=== PATIENT | male | born 1965 | race American Indian/Alaskan Native ===

== ENCOUNTER 2019-01-23 09:23 | Inpatient (IN) | payer OTHER ==
--- NOTE | 2019-01-23 10:33 | C.PDOC ---
History Of Present Illness 53 y/o male presents to the ED for evaluation of right ankle pain/swelling and deformity since this morning. Patient states he was up and wrestling with his son at home when he injured the ankle. Otherwise, he denies obvious deformity, sensory or vascular deficits to Right ankle/foot, or open wounds, or other injury. Appears comfortable, not in any apparent distress. Time Seen by Provider: 01/23/19 09:45 Chief Complaint (Nursing): Lower Extremity Problem/Injury History Per: Patient History/Exam Limitations: no limitations Onset/Duration Of Symptoms: Hrs Current Symptoms Are (Timing): Still Present Severity: Moderate Past Medical History Reviewed: Historical Data, Nursing Documentation, Vital Signs Vital Signs: Last Vital Signs Temp 98.7 F 01/23/19 09:34 Pulse 79 01/23/19 09:34 Resp 18 01/23/19 09:34 BP 162/94 H 01/23/19 09:34 Pulse Ox 98 01/23/19 09:34 - Medical History PMH: HTN Family History: States: Unknown Family Hx - Social History Hx Alcohol Use: No Hx Substance Use: No - Immunization History Hx Tetanus Toxoid Vaccination: No Hx Influenza Vaccination: No Hx Pneumococcal Vaccination: No Review Of Systems Except As Marked, All Systems Reviewed And Found Negative. Constitutional: Negative for: Fever, Chills Cardiovascular: Negative for: Chest Pain Respiratory: Negative for: Shortness of Breath Gastrointestinal: Negative for: Nausea, Vomiting Musculoskeletal: Positive for: Foot Pain (right ankle). Negative for: Back Pain Skin: Negative for: Rash, Lesions Neurological: Negative for: Weakness, Numbness, Incoordination Physical Exam - Physical Exam Appears: Well, Non-toxic, No Acute Distress Skin: Normal Color, Warm, No Rash Head: Normacephalic Eye(s): bilateral: PERRL Neck: Trachea Midline, No Midline Cervical Tenderness, No Paracervical Tenderness, No Step Off Deformity, Supple Chest: Symmetrical, No Deformity Cardiovascular: Rhythm Regular, No Murmur Respiratory: No Accessory Muscle Use Extremity: Tenderness (diffuse tenderness over right ankle), Capillary Refill (less than 2 sec), Swelling (edema over right ankle), Other (Decreased ROM secondary to pain) Pulses: Left Dorsalis Pedis: Normal, Right Dorsalis Pedis: Normal Neurological/Psych: Oriented x3, Normal Sensation, Normal Reflexes ED Course And Treatment - Laboratory Results Result Diagrams: 01/23/19 11:55 01/23/19 11:55 Lab Interpretation: No Acute Changes ECG: Interpreted By Me, Viewed By Me Interpretation Of ECG: SR@76/min, LAD, T wave inversion in II, III, AVF. ECHO results review from 08/2018 O2 Sat by Pulse Oximetry: 98 (on RA) Pulse Ox Interpretation: Normal - Radiology CXR: Interpreted by Me, Viewed By Me, Read By Radiologist CXR Interpretation: Yes: No Acute Disease - Other Rad Right ankle X-Ray: Interpreted by Me, Viewed By Me Interpretation: (+) distal fibula fx, spiral, displaced Progress Note: Patient given 50 mg PO Tramadol. X-rays taken of right ankle, foot, and tib fib. Podiatry consult was called, splint applied. After podiatry resident evaluated pt, discussed with Podiatry on-call , admission to [facility] requested with [facility] by PMD. 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 - Scribe Statement The provider has reviewed the documentation as recorded by the Radhaibtyrel Weston All medical record entries made by the Radhaibtyrel were at my direction and personally dictated by me. I have reviewed the chart and agree that the record accurately reflects my personal performance of the history, physical exam, medical decision making, and the department course for this patient. I have also personally directed, reviewed, and agree with the discharge instructions and disposition.
[2019-01-23 11:59] LABS: BASO # 0.1 K/uL (0.0-0.2); BASO % 0.7 % (0.0-2.0); HEMOGLOBIN 15.9 g/dL (12.0-18.0); LYMPH % 12.6 % (20.0-40.0); MEAN CELL VOLUME 87.2 fL (80.0-94.0); MEAN CORPUSCULAR HEMOGLOBIN 28.5 pg (27.0-31.0); MEAN CORPUSCULAR HGB CONC 32.6 g/dL (33.0-37.0); MEAN PLATELET VOLUME 7.9 fL (7.2-11.7); MONO # 0.3 K/uL (0.0-0.8); MONO % 3.7 % (0.0-10.0); NEUT # 6.6 K/uL (1.8-7.0); RBC 5.58 Mil/uL (4.40-5.90); RED CELL DISTRIBUTION WIDTH 14.2 % (11.5-14.5); WHITE BLOOD COUNT 7.9 K/uL (4.8-10.8)
[2019-01-23] MEDS ORDERED: Sodium Chloride 0.9% 1,000 ML IV SCH (12:00)
[2019-01-23 12:07] LABS: PROTHROMBIN TIME 11.4 SECONDS (9.7-12.2)
[2019-01-23 12:12] LABS: BLOOD UREA NITROGEN 16 mg/dL (9-20); CALCIUM 9.6 mg/dl (8.6-10.4); GFR NON-AFRICAN AMERICAN 53
--- NOTE | 2019-01-23 12:56 | RAD ---
Date of service: 01/23/2019 PROCEDURE: Right Ankle Radiographs. HISTORY: injury COMPARISON: None available. FINDINGS: BONES: A mildly comminuted spiral type fracture distal fibular metaphysis with ankle mortise extension. No ankle mortise widening appreciated. Fracture ends are 3 mm slightly displaced posteriorly 2 to 3 mm on lateral view. JOINTS: Minimal midfoot osteoarthrosis.. No ankle mortise widening. Talar dome intact SOFT TISSUES: Marked soft tissue swelling lateral perimalleolar. OTHER FINDINGS: Sandeep's tendon insetional enesthesophyte. IMPRESSION: Mildly comminuted minimally displaced spiral type distal fibular metaphyseal fracture with extension to the tibial fibular joint. No ankle mortise widening suggested Marked soft tissue swelling as above.
--- NOTE | 2019-01-23 13:19 | CP.PCM.CON ---
History of Present Illness - History of Present Illness History of Present Illness: Podiatry Consult Note- Dr. Lopez 53 year old male with PMH of HTN seen and evaluated in the ED for right ankle pain. Patient reports that today he was playing with his son when he fell backwards and twisted his right ankle. He reports hearing a pop and felt immediate pain. Reports unable to put any weight on the right ankle and came to the ED for an evaluation. Patient reports he has 3/10 pain currently, describes as an achy pain. Reports some numbness to the ankle. Reports pain medication given in the ED is helping with the pain. Pain is well controlled. Reports that with ankle motion he has 10/10 pain on VAS scale. Reports nothing to eat or drink since morning. Denies nausea, fever, shortness of breath, chest pains or chills. PMH: HTN PSH: denies ALL: NKDA FH: HTN SH: denies smoking, socially drink EtOH or illicit drug use MEDS: Hydralazine, Metoprolol, Amlodipine Primary: Shanita Hernandez Past Patient History - Past Social History Smoking Status: Never Smoked - CARDIAC Hx Hypertension: Yes - PSYCHIATRIC Hx Substance Use: No - SURGICAL HISTORY Hx Surgeries: No - ANESTHESIA Hx Anesthesia: No Meds Allergies/Adverse Reactions: Allergies Allergy/AdvReac Type Severity Reaction Status Date / Time No Known Allergies Allergy Verified 01/23/19 09:32 - Medications Medications: Current Medications Sodium Chloride (Sodium Chloride 0.9%) 1,000 mls @ 150 mls/hr IV .Q6H40M [place] Physical Exam - Constitutional Appears: Well, Non-toxic, No Acute Distress - Extremities Exam Extremities exam: Negative for: calf tenderness Additional comments: RLE VASC: DP and PT 2/4, pulses present, CFT < 3 seconds x 5 digits, temperature gradient warm to cool, nonpitting edema mild-moderate noted to the entire right ankle, no varciosities, no spider veins ORTHO: severe pain with palpation to the lateral malleolus, moderate deltoid ligaments and ankle joint, pain with ankle ROM, patient able to dorsiflexion, plantarflexion, invert and nafisa with some guarding noted, no pallor NEURO: gross and protective sensation intact DERM: no ecchymosis noted, no open lesions, skin texture WNL, no erythema noted - Neurological Exam Neurological exam: Alert, Oriented x3 - Psychiatric Exam Psychiatric exam: Normal Affect, Normal Mood Results - Vital Signs Recent Vital Signs: Last Vital Signs Temp 98.7 F 01/23/19 09:34 Pulse 79 01/23/19 09:34 Resp 18 01/23/19 09:34 BP 162/94 H 01/23/19 09:34 Pulse Ox 98 01/23/19 12:26 - Labs Result Diagrams: 01/23/19 11:55 01/23/19 11:55 Labs: Laboratory Results - last 24 hr 01/23/19 01/23/19 01/23/19 11:55 11:55 11:55 WBC 7.9 RBC 5.58 Hgb 15.9 Hct 48.7 MCV 87.2 MCH 28.5 MCHC 32.6 L RDW 14.2 Plt Count 301 MPV 7.9 Neut % (Auto) 83.0 H Lymph % (Auto) 12.6 L Hickman % (Auto) 3.7 Eos % (Auto) 0.0 Baso % (Auto) 0.7 Neut # (Auto) 6.6 Lymph # (Auto) 1.0 Hickman # (Auto) 0.3 Eos # (Auto) 0.0 Baso # (Auto) 0.1 PT 11.4 INR 1.0 APTT 33 Sodium 140 Potassium 3.8 Chloride 104 Carbon Dioxide 28 Anion Gap 12 BUN 16 Creatinine 1.4 Est GFR ( Amer) > 60 Est GFR (Non-Af Amer) 53 Random Glucose 110 Calcium 9.6 Assessment & Plan - Assessment and Plan (Free Text) Assessment: 53 year old male with PMH of HTN with displaced fibular fracture with possible tear of the deltoid ligament Plan: PAtient seen and examined Discussed plan in detail with attending Dr Lopez X-rays reviewed right ankle- pending final read- displaced right ankle distal fibular fracture, wide medial gutter, ankle joint incongruent (read by me) Reviewed X-rays with patient NPO Diet. Nothing to eat or drink today Mcgowan Compression applied, posterior splint applied. Please ice behind knee and top of right ankle Elevate with 3-4 pillows RLE NWB to right lower extremity Physical therapy consulted- please elevate and treat Patient to go to the OR today at 6:30 pm for open reduction internal fixation of right ankle pending medical clearance Please provide medical clearance- thank you OR notified of add on Patient will be under overnight observation after surgery Discussed with patient in detail risks, benefits, complications and alternatives. Patient understands and is agreeable. Thank you for allowing us to participate in patient's care
[2019-01-23] MEDS ORDERED: Oxycodone/Acetaminophen 5/325 mg Tab PO PRN ×2 (13:21→13:43)
--- NOTE | 2019-01-23 14:08 | RAD ---
Date of service: 01/23/2019 HISTORY: surg/HTN COMPARISON: No prior. FINDINGS: LUNGS: No active pulmonary disease. PLEURA: No significant pleural effusion identified, no pneumothorax apparent. CARDIOVASCULAR: No aortic atherosclerotic calcification present. Normal cardiac size. No pulmonary vascular congestion. OSSEOUS STRUCTURES: No significant abnormalities. VISUALIZED UPPER ABDOMEN: Normal. OTHER FINDINGS: None. IMPRESSION: No active disease.
--- NOTE | 2019-01-23 14:20 | RAD ---
Date of service: 01/23/2019 PROCEDURE: Right Foot Radiographs. HISTORY: injury COMPARISON: Right ankle 01/23/2019 FINDINGS: BONES: The previously referenced spiral comminuted type distal fibular metaphyseal fracture is hree noted this is clearly better appreciated on the prior ankle study. Soft tissue swelling over it is not clearly appreciated. JOINTS: Minimal 1st metatarsal-phalangeal joint arthrosis minimal midfoot arthrosis. SOFT TISSUES: Marked soft tissue swelling especially lateral to the fibula Approximately 2 mm triangular bony like density projects posterior to the tibia and fibula on the lateral view this not appreciated well on the prior study-this may represent a tiny osseous chip fracture in this patient with an acute spiral mildly comminuted distal fibular metaphyseal fracture. OTHER FINDINGS: Leicester's tendon insetional enesthesophyte. IMPRESSION: Re-noted, albeit less conspicuous is a comminuted spiral type fracture distal fibular metaphysis. Apparent 2 mm posterior measuring chip fracture fragment. Associated marked soft tissue swelling. Other findings as above.
--- NOTE | 2019-01-23 14:21 | RAD ---
Date of service: 01/23/2019 PROCEDURE: Radiographs of the right tibia and fibula. HISTORY: injury COMPARISON: None available TECHNIQUE: Frontal and lateral views obtained. FINDINGS: BONES: Spiral a comminuted fracture fibular metaphysis with tibial fibular joint intra-articular extension noted. The fracture ends are approximately 2 mm of the distal fracture fragment posteriorly displaced approximately 2 mm. JOINT SPACES: Unremarkable. OTHER FINDINGS: Soft tissue swelling borders lateral malleolus. IMPRESSION: Comminuted spiral minimally displaced distal fibular metaphyseal fracture with tibial fibular joint intra-articular extension. Findings were referenced on the prior right ankle x-ray study. Marked soft tissue swelling. No more tibial fibular fractures noted.
--- NOTE | 2019-01-23 19:38 | CP.PCM.PN ---
Subjective - Date & Time of Evaluation Date of Evaluation: 01/23/19 Time of Evaluation: 18:15 - Subjective Subjective: Consult dictated #[id number] Objective - Vital Signs/Intake and Output Vital Signs (last 24 hours): Temp Pulse Resp BP Pulse Ox 97.8 F 71 19 176/99 H 98 01/23/19 18:58 01/23/19 18:58 01/23/19 18:58 01/23/19 18:58 01/23/19 18:58 - Medications Medications: Current Medications Acetaminophen (Tylenol 325mg Tab) 650 mg PO Q6 PRN PRN Reason: Pain, Mild (1-3) Enoxaparin Sodium (Lovenox) 40 mg SC DAILY [place] Sodium Chloride (Sodium Chloride 0.9%) 1,000 mls @ 150 mls/hr IV .Q6H40M [place] Last Admin: 01/23/19 12:00 Dose: 150 mls/hr Oxycodone/Acetaminophen (Percocet 5/325 Mg Tab) 1 tab PO Q4H PRN PRN Reason: Pain, moderate (4-7) Stop: 01/26/19 13:22 Oxycodone/Acetaminophen (Percocet 5/325 Mg Tab) 2 tab PO Q4H PRN PRN Reason: Pain, severe (8-10) Stop: 01/26/19 13:44 - Labs Labs: 01/23/19 11:55 01/23/19 11:55 PT 11.4 SECONDS (9.7-12.2) 01/23/19 11:55 INR 1.0 01/23/19 11:55 APTT 33 SECONDS (21-34) 01/23/19 11:55
[2019-01-23] MEDS: Sodium Chloride 0.45% 1,000 ML IV SCH (23:55)
[2019-01-23] MEDS: Metoprolol Succinate 50 mg XL Tab PO SCH (23:55)
--- NOTE | 2019-01-24 06:55 | CON ---
DATE: 01/23/2019 REASON FOR CONSULT: Medical clearance. REQUESTING PHYSICIAN: Kerri Lopez DPM HISTORY OF PRESENT ILLNESS: The patient is a 53-year-old male with past medical history of hypertension who has been following up with Dr. Reese Hernandez, his primary care physician, came in to the emergency room after he had sustained a fall and hurt his right ankle. As per the patient, he stumbled back while he was with his son and lost his balance. He hurt his right ankle with pain for which he was evaluated in the emergency room. He was found to be having right ankle fracture and the patient is being admitted for possible surgical correction and medical consult requested for medical clearance. When I examined the patient, he denies any headache, dizziness. Denies any chest pain, shortness of breath or wheezing. Denies any nausea, vomiting, abdominal pain, diarrhea or constipation. Denies any urinary complaints, complaining of right leg pain when he moves but denies any other neurologic symptoms. All other systems reviewed and were found to be negative. PAST MEDICAL HISTORY: As described, hypertension. PAST SURGICAL HISTORY: Denies any past surgical history. FAMILY HISTORY: Diabetes and hypertension in mother, aunt and grandmother. PERSONAL HISTORY: He is single, has two children, worked for [employer]. SOCIAL HISTORY: Denies smoking, alcohol or drug abuse. ALLERGIES: NO KNOWN DRUG ALLERGIES. MEDICATIONS: Include hydrochlorothiazide 50 mg daily, amlodipine 10 mg daily, metoprolol 50 mg p.o. b.i.d. REVIEW OF SYSTEMS: As described in history of present illness. All other systems reviewed and were found to be negative. He claims he was not able to walk about a year ago before he was found to be having hypertension. Since he has been taking his medication, his exercise tolerance improved and he lives on the third floor and he does not have any difficulty walking up and down stairs. PHYSICAL EXAMINATION: GENERAL: A middle-aged male, lying in bed in no acute distress. VITAL SIGNS: Blood pressure 176/99, pulse 71, respirations 20, temperature 97.8 degrees Fahrenheit, O2 sats 98% on room air. HEENT: Pupils are equal, round, and reacting to light and accommodation. Extraocular muscles are intact. No icterus. No pallor. No oral thrush. No pharyngeal congestion. NECK: Supple. No JVD. LUNGS: Bilateral vesicular breath sounds. No wheezing. No rhonchi. CARDIOVASCULAR SYSTEM: S1 and S2 present. Regular. ABDOMEN: Soft and nontender. Bowel sounds present. No guarding. No rigidity. No rebound tenderness noted. CENTRAL NERVOUS SYSTEM: Alert, awake and oriented x3. No focal deficits noted. EXTREMITIES: Right foot with a splint in place. LABORATORY DATA: Labs done from the emergency room, WBC 7.9, hemoglobin 15.9, hematocrit 48.7, platelets 301. PT 11.4, INR 1, PTT 33. Sodium 140, potassium 3.8, chloride 104, bicarb 28, BUN 15, creatinine 1.4, glucose 110, calcium 9.6, troponin less than 0.0120. Chest x-ray, no active disease. Ankle x-ray consistent with mildly comminuted, minimally displaced spiral-type distal fibular metaphyseal fracture with extension to the tibia-fibular joint and no ankle mortise widening suggested. Marked soft tissue swelling. EKG consistent with normal sinus rhythm at 76 beats per minute. T inversions in II, III and aVF with LVH changes. No old EKGs available for comparison. The patient had echocardiogram done in 08/2018 consistent with EF of 60% to 65%, mild concentric LVH. ASSESSMENT AND PLAN: A middle-aged male with history of hypertension, without any prior history of coronary artery disease, admitted for right ankle fracture, medical consult requested for medical clearance and medical management of hypertension. He is found to be having electrocardiogram changes with T inversions in inferior leads, unclear old versus new. Troponin done is negative as do serial troponin. Repeat electrocardiogram in the morning. Recent echocardiogram showed normal left ventricle function. We will obtain cardiology evaluation prior to operating room. Continue with pain medication. Continue with current blood pressure medications. We will follow up with you. Thank you for allowing me to participate in this patient's care. Bam Hunter MD
[2019-01-24] MEDS ORDERED: Caffeine Citrated **INJ** 20 MG/ML IV ONE (07:55)
--- NOTE | 2019-01-24 09:03 | CP.PCM.PN ---
Subjective - Date & Time of Evaluation Date of Evaluation: 01/24/19 Time of Evaluation: 09:03 - Subjective Subjective: Progress note dictated #[id number] Objective - Vital Signs/Intake and Output Vital Signs (last 24 hours): Temp Pulse Resp BP Pulse Ox 98.6 F 81 20 169/85 H 97 01/23/19 23:50 01/23/19 23:50 01/23/19 23:50 01/23/19 23:50 01/23/19 23:50 - Medications Medications: Current Medications Acetaminophen (Tylenol 325mg Tab) 650 mg PO Q6 PRN PRN Reason: Pain, Mild (1-3) Amlodipine Besylate (Norvasc) 10 mg PO DAILY [facility] Enoxaparin Sodium (Lovenox) 40 mg SC DAILY [facility] Hydrochlorothiazide (Hydrodiuril) 50 mg PO DAILY [facility] Sodium Chloride (Sodium Chloride 0.45%) 1,000 mls @ 75 mls/hr IV .[id number] [facility] Last Admin: 01/23/19 23:55 Dose: 75 mls/hr Influenza Virus Vaccine (Flucelvax Quad [id number] Syr) 60 mcg IM .ONCE ONE Stop: 01/24/19 10:01 Metoprolol Succinate (Toprol Xl) 50 mg PO BID [facility] Last Admin: 01/23/19 23:55 Dose: 50 mg Oxycodone/Acetaminophen (Percocet 5/325 Mg Tab) 1 tab PO Q4H PRN PRN Reason: Pain, moderate (4-7) Stop: 01/26/19 13:22 Oxycodone/Acetaminophen (Percocet 5/325 Mg Tab) 2 tab PO Q4H PRN PRN Reason: Pain, severe (8-10) Stop: 01/26/19 13:44 Pneumococcal Polyvalent Vaccine (Pneumovax 23 Vaccine) 0.5 ml IM .ONCE ONE Stop: 01/24/19 10:01 - Labs Labs: 01/23/19 11:55 01/23/19 11:55 PT 11.4 SECONDS (9.7-12.2) 01/23/19 11:55 INR 1.0 01/23/19 11:55 APTT 33 SECONDS (21-34) 01/23/19 11:55
--- NOTE | 2019-01-24 09:45 | CT ---
Date of service: 01/23/2019 PROCEDURE: HISTORY: right ankle fracture COMPARISON: TECHNIQUE: FINDINGS: Transverse and partially oblique fracture with mild displacement of the distal fibula with mild widening of the medial aspect of the ankle mortise. IMPRESSION: As above.
[2019-01-24] MEDS ORDERED: Influenza Vaccine 60 mcg/0.5 mL SYR (4YR UP) IM ONE (10:00)
[2019-01-24] MEDS ORDERED: Pneumococcal 23-Valent Vaccine IM ONE (10:00)
--- NOTE | 2019-01-24 14:50 | CP.PCM.PN ---
Subjective - Date & Time of Evaluation Date of Evaluation: 01/24/19 Time of Evaluation: 13:00 - Subjective Subjective: Podiatry Progress Note- Dr. Lopez 53M seen and evaluated at bedside for right displaced fibular fracture and deltoid sprain secondary to trauma. Patient is seen resting comfortably in bed, in NAD, and AA0x3. Patient reports has been nonweightbearing with crutches in a posterior splint. Reports has been keeping it elevated and icing. Reports that posterior splint is not too tight. Reports minimal pain at this time. Patient denies nausea, fever, shortness of breath, chest pains or chills. Denies calf tenderness or pain. Objective - Vital Signs/Intake and Output Vital Signs (last 24 hours): Temp Pulse Resp BP Pulse Ox 98.6 F 75 18 154/93 H 97 01/24/19 09:14 01/24/19 09:14 01/24/19 09:14 01/24/19 09:14 01/24/19 09:14 - Medications Medications: Current Medications Acetaminophen (Tylenol 325mg Tab) 650 mg PO Q6 PRN PRN Reason: Pain, Mild (1-3) Amlodipine Besylate (Norvasc) 10 mg PO DAILY [facility] Enoxaparin Sodium (Lovenox) 40 mg SC DAILY [facility] Hydrochlorothiazide (Hydrodiuril) 50 mg PO DAILY [facility] Sodium Chloride (Sodium Chloride 0.45%) 1,000 mls @ 75 mls/hr IV .[id number] [facility] Last Admin: 01/23/19 23:55 Dose: 75 mls/hr Metoprolol Succinate (Toprol Xl) 50 mg PO BID [facility] Last Admin: 01/23/19 23:55 Dose: 50 mg Oxycodone/Acetaminophen (Percocet 5/325 Mg Tab) 1 tab PO Q4H PRN PRN Reason: Pain, moderate (4-7) Stop: 01/26/19 13:22 Oxycodone/Acetaminophen (Percocet 5/325 Mg Tab) 2 tab PO Q4H PRN PRN Reason: Pain, severe (8-10) Stop: 01/26/19 13:44 - Labs Labs: 01/23/19 11:55 01/23/19 11:55 PT 11.4 SECONDS (9.7-12.2) 01/23/19 11:55 INR 1.0 01/23/19 11:55 APTT 33 SECONDS (21-34) 01/23/19 11:55 - Constitutional Appears: Well, Non-toxic, No Acute Distress - Extremities Exam Extremities Exam: absent: Calf Tenderness Additional comments: Posterior splint c/d/i Patient able to wiggle toes No calf tenderness or pain with palpation CFT < 3 seconds Temperature gradient WNL - Neurological Exam Neurological Exam: Alert, Awake, Oriented x3 - Psychiatric Exam Psychiatric exam: Normal Affect, Normal Mood Assessment and Plan - Assessment and Plan (Free Text) Assessment: 53 year old male with PMH of HTN with displaced fibular fracture with possible tear of the deltoid ligament Plan: Patient seen and examined Discussed plan in detail with attending Dr Lopez X-rays reviewed right ankle- displaced right ankle distal fibular fracture, wide medial gutter, ankle joint incongruent, talar tilt noted CT right lower extremity order and reviewed- displaced right fibular fracture Reviewed X-rays with patient Keep intact [place]gowan Compression with Posterior splint Do not get wet. Keep clean dry and intact Please ice behind knee and top of right ankle Elevate with 3-4 pillows RLE NWB to right lower extremity with crutches Physical therapy consulted- please elevate and treat Patient TO GO TO THE OR Monday01/28/19 pending medical clearance and cardiac clearance Discussed with patient in detail risks, benefits, complications and alternatives. Patient understands and is agreeable. All questions/concerns addressed
--- NOTE | 2019-01-24 15:30 | CARD ---
APPROVED REPORT Date of service: 01/23/2019 EKG Measurement Heart [id number] <Conclusion> Normal sinus rhythm Voltage criteria for left ventricular hypertrophy ST & T wave abnormality, consider inferior ischemia Abnormal ECG
[2019-01-24] MEDS: Metoprolol Succinate 50 mg XL Tab PO SCH (18:50)
--- NOTE | 2019-01-24 19:53 | PN ---
DATE: 01/24/2019 SUBJECTIVE: The patient is seen and examined while undergoing a stress test. The patient denies any new complaints other than the pain. Denies any headache, dizziness. Denies any chest pain, shortness of breath, or wheezing. PHYSICAL EXAMINATION: GENERAL: Middle-aged male, lying in bed, in no acute distress. VITAL SIGNS: Blood pressure 152/95, pulse 72, respirations 20, temperature 98.1 degrees Fahrenheit, O2 sats 96% on room air. HEENT: Pupils equal, round, reacting to light and accommodation. Extraocular muscles intact. No icterus. No pallor. No oral thrush. No pharyngeal congestion. NECK: Supple. No JVD. LUNGS: Bilateral vesicular breath sounds. No wheezing. No rhonchi. CARDIOVASCULAR SYSTEM: S1 and S2 present, regular. ABDOMEN: Soft and nontender. Bowel sounds present. No guarding. No rigidity. No rebound tenderness noted. CENTRAL NERVOUS SYSTEM: Alert, awake, oriented x3. No focal deficits noted. EXTREMITIES: Right foot with a cast in place. Palpable peripheral pulses. MEDICATIONS: Include Tylenol as needed, Norvasc 10 mg daily, Lovenox 40 mg subcutaneous daily, hydrochlorothiazide 50 mg daily, Toprol-XL 50 mg p.o. b.i.d., Percocet one tablet as needed, IV fluids half-normal saline at 75 mL/hour. LABORATORY DATA: Cardiac enzymes x3 negative. ASSESSMENT AND PLAN: A middle-aged male with history of hypertension with abnormal electrocardiogram, status post fall with right ankle fracture. Undergoing cardiac workup for clearance for possible surgery in a.m. Continue with current antihypertensive medications. Continue with deep venous thrombosis prophylaxis. Continue with pain medication as ordered. We will follow up with stress test report. Discussed with Podiatry and Cardiology. If stress test is negative, the patient may undergo surgery as scheduled by Podiatry. We will add further recommendation as his clinical course progresses. Bam Hunter MD
--- NOTE | 2019-01-24 22:53 | CP.PCM.CON ---
History of Present Illness - History of Present Illness History of Present Illness: CC: Pre Op cardiac risk assessment 53 year old male with PMH of HTN seen and evaluated in the ED for right ankle pain. Patient reports that today he was playing with his son when he fell backwards and twisted his right ankle. He reports hearing a pop and felt immediate pain. Reports unable to put any weight on the right ankle and came to the ED for an evaluation. Patient reports he has 3/10 pain currently, describes as an achy pain. Reports some numbness to the ankle. Reports pain medication given in the ED is helping with the pain. Pain is well controlled. Reports that with ankle motion he has 10/10 pain on VAS scale. Reports nothing to eat or drink since morning. Denies nausea, fever, shortness of breath, chest pains or chills. PMH: HTN PSH: denies ALL: NKDA FH: HTN SH: denies smoking, socially drink EtOH or illicit drug use MEDS: Hydralazine, Metoprolol, Amlodipine Primary: Shanita Hernandez Allergies/Adverse Reactions: Allergies Allergy/AdvReac Type Severity Reaction Status Date / Time No Known Allergies Allergy Verified 01/23/19 09:32 - Medications Medications: Current Medications Sodium Chloride (Sodium Chloride 0.9%) 1,000 mls @ 150 mls/hr IV .[id number] [facility] Physical Exam - Constitutional Appears: Well, Non-toxic, No Acute Distress - Extremities Exam Extremities exam: Negative for: calf tenderness Additional comments: RLE VASC: DP and PT 2/4, pulses present, CFT < 3 seconds x 5 digits, temperature gradient warm to cool, nonpitting edema mild-moderate noted to the entire right ankle, no varciosities, no spider veins ORTHO: severe pain with palpation to the lateral malleolus, moderate deltoid ligaments and ankle joint, pain with ankle ROM, patient able to dorsiflexion, plantarflexion, invert and nafisa with some guarding noted, no pallor NEURO: gross and protective sensation intact DERM: no ecchymosis noted, no open lesions, skin texture WNL, no erythema noted - Neurological Exam Neurological exam: Alert, Oriented x3 - Psychiatric Exam Psychiatric exam: Normal Affect, Normal Mood Past Patient History - Past Social History Smoking Status: Never Smoked - CARDIAC Hx Hypertension: Yes - MUSCULOSKELETAL/RHEUMATOLOGICAL Hx Falls: Yes - PSYCHIATRIC Hx Substance Use: No - SURGICAL HISTORY Hx Surgeries: No - ANESTHESIA Hx Anesthesia: No Meds Allergies/Adverse Reactions: Allergies Allergy/AdvReac Type Severity Reaction Status Date / Time No Known Allergies Allergy Verified 01/23/19 09:32 - Medications Medications: Current Medications Acetaminophen (Tylenol 325mg Tab) 650 mg PO Q6 PRN PRN Reason: Pain, Mild (1-3) Amlodipine Besylate (Norvasc) 10 mg PO DAILY [facility] Enoxaparin Sodium (Lovenox) 40 mg SC DAILY [facility] Hydrochlorothiazide (Hydrodiuril) 50 mg PO DAILY [facility] Sodium Chloride (Sodium Chloride 0.45%) 1,000 mls @ 75 mls/hr IV .[id number] [facility] Last Admin: 01/23/19 23:55 Dose: 75 mls/hr Metoprolol Succinate (Toprol Xl) 50 mg PO BID [facility] Last Admin: 01/24/19 18:50 Dose: 50 mg Oxycodone/Acetaminophen (Percocet 5/325 Mg Tab) 1 tab PO Q4H PRN PRN Reason: Pain, moderate (4-7) Stop: 01/26/19 13:22 Oxycodone/Acetaminophen (Percocet 5/325 Mg Tab) 2 tab PO Q4H PRN PRN Reason: Pain, severe (8-10) Stop: 01/26/19 13:44 Results - Vital Signs Recent Vital Signs: Last Vital Signs Temp 98.1 F 01/24/19 16:00 Pulse 72 01/24/19 16:00 Resp 20 01/24/19 16:00 BP 152/95 H 01/24/19 16:00 Pulse Ox 96 01/24/19 16:00 - Labs Result Diagrams: 01/23/19 11:55 01/23/19 11:55 Labs: Laboratory Results - last 24 hr 01/24/19 07:11 Troponin I 0.0200 Assessment & Plan - Assessment and Plan (Free Text) Assessment: 53 Male wth hx of HTN Normal nuclear stress test ECHO: Normal EF, No valvular issues This patient assessed as low to moderate cardiac risk for ankle surgery under general anaesthesia Thank you
[2019-01-25] MEDS: Sodium Chloride 0.45% 1,000 ML IV SCH ×2 (06:40→17:16)
--- NOTE | 2019-01-25 09:29 | CP.PCM.PN ---
Subjective - Date & Time of Evaluation Date of Evaluation: 01/25/19 Time of Evaluation: 09:29 - Subjective Subjective: Progress note dictated #[id number] Objective - Vital Signs/Intake and Output Vital Signs (last 24 hours): Temp Pulse Resp BP Pulse Ox 98.2 F 71 20 134/86 97 01/25/19 07:00 01/25/19 07:00 01/25/19 07:00 01/25/19 07:00 01/25/19 07:00 Intake and Output: 01/25/19 01/25/19 06:59 18:59 Intake Total 600 Balance 600 - Medications Medications: Current Medications Acetaminophen (Tylenol 325mg Tab) 650 mg PO Q6 PRN PRN Reason: Pain, Mild (1-3) Amlodipine Besylate (Norvasc) 10 mg PO DAILY [facility] Enoxaparin Sodium (Lovenox) 40 mg SC DAILY [facility] Hydrochlorothiazide (Hydrodiuril) 50 mg PO DAILY [facility] Sodium Chloride (Sodium Chloride 0.45%) 1,000 mls @ 75 mls/hr IV .[id number] [facility] Last Admin: 01/25/19 06:40 Dose: 75 mls/hr Metoprolol Succinate (Toprol Xl) 50 mg PO BID [facility] Last Admin: 01/24/19 18:50 Dose: 50 mg Oxycodone/Acetaminophen (Percocet 5/325 Mg Tab) 1 tab PO Q4H PRN PRN Reason: Pain, moderate (4-7) Stop: 01/26/19 13:22 Oxycodone/Acetaminophen (Percocet 5/325 Mg Tab) 2 tab PO Q4H PRN PRN Reason: Pain, severe (8-10) Stop: 01/26/19 13:44 - Labs Labs: 01/23/19 11:55 01/23/19 11:55 PT 11.4 SECONDS (9.7-12.2) 01/23/19 11:55 INR 1.0 01/23/19 11:55 APTT 33 SECONDS (21-34) 01/23/19 11:55
[2019-01-25] MEDS: Metoprolol Succinate 50 mg XL Tab PO SCH ×2 (11:04→17:14)
[2019-01-25] MEDS: Enoxaparin 40 mg Syringe SC SCH (11:05)
[2019-01-25] MEDS ORDERED: Oxycodone/Acetaminophen 5/325 mg Tab PO PRN (12:42)
[2019-01-25] MEDS: Oxycodone/Acetaminophen 5/325 mg Tab PO PRN (12:52)
--- NOTE | 2019-01-25 13:03 | CP.PCM.PN ---
Subjective - Date & Time of Evaluation Date of Evaluation: 01/25/19 Time of Evaluation: 14:00 - Subjective Subjective: Podiatry Progress Note- Dr. Lopez 53M seen and evaluated at bedside for right displaced fibular fracture and deltoid sprain secondary to trauma. Patient is seen resting comfortably in bed, in NAD, and AA0x3. Legs are elevated and ice pack applied. Patient reports pain is well managed. Some pain when he tries to move his ankle. Reports has been keeping it elevated and icing. Reports has been moving around not putting weight on right foot with the walker given to help. Reports minimal pain at this time. Patient denies nausea, fever, shortness of breath, chest pains or chills. Denies calf tenderness or pain. Patient understands that he will be going to surgery tomorrow Monday at 7:45AM for ankle fracture open reduction internal fixation with Dr. Lopez. Objective - Vital Signs/Intake and Output Vital Signs (last 24 hours): Temp Pulse Resp BP Pulse Ox 98.2 F 71 20 134/86 97 01/25/19 07:00 01/25/19 07:00 01/25/19 07:00 01/25/19 07:00 01/25/19 07:00 Intake and Output: 01/25/19 01/25/19 06:59 18:59 Intake Total 600 Balance 600 - Medications Medications: Current Medications Acetaminophen (Tylenol 325mg Tab) 650 mg PO Q6 PRN PRN Reason: Pain, Mild (1-3) Amlodipine Besylate (Norvasc) 10 mg PO DAILY [facility] Last Admin: 01/25/19 11:04 Dose: 10 mg Enoxaparin Sodium (Lovenox) 40 mg SC DAILY [facility] Last Admin: 01/25/19 11:05 Dose: 40 mg Hydrochlorothiazide (Hydrodiuril) 50 mg PO DAILY [facility] Last Admin: 01/25/19 11:05 Dose: 50 mg Sodium Chloride (Sodium Chloride 0.45%) 1,000 mls @ 75 mls/hr IV .[id number] [facility] Last Admin: 01/25/19 06:40 Dose: 75 mls/hr Metoprolol Succinate (Toprol Xl) 50 mg PO BID [facility] Last Admin: 01/25/19 11:04 Dose: 50 mg Oxycodone/Acetaminophen (Percocet 5/325 Mg Tab) 1 tab PO Q4H PRN PRN Reason: Pain, moderate (4-7) Stop: 01/28/19 12:42 Last Admin: 01/25/19 12:52 Dose: 1 tab Oxycodone/Acetaminophen (Percocet 5/325 Mg Tab) 2 tab PO Q4H PRN PRN Reason: Pain, severe (8-10) Stop: 01/28/19 12:43 - Labs Labs: 01/23/19 11:55 01/23/19 11:55 PT 11.4 SECONDS (9.7-12.2) 01/23/19 11:55 INR 1.0 01/23/19 11:55 APTT 33 SECONDS (21-34) 01/23/19 11:55 - Constitutional Appears: Well, Non-toxic, No Acute Distress - Extremities Exam Extremities Exam: absent: Calf Tenderness Additional comments: Posterior splint c/d/i Patient able to wiggle toes No calf tenderness or pain with palpation CFT < 3 seconds Temperature gradient WNL - Neurological Exam Neurological Exam: Alert, Awake, Oriented x3 - Psychiatric Exam Psychiatric exam: Normal Affect, Normal Mood Assessment and Plan - Assessment and Plan (Free Text) Assessment: 53 year old male with PMH of HTN with displaced fibular fracture with possible tear of the deltoid ligament Plan: Patient seen and examined Discussed plan in detail with attending Dr Lopez X-rays reviewed right ankle- displaced right ankle distal fibular fracture, wide medial gutter, ankle joint incongruent, talar tilt noted CT right lower extremity order and reviewed- displaced right fibular fracture Reviewed X-rays with patient Keep intact Mcgowan Compression with Posterior splint Do not get wet. Keep clean dry and intact Please ice behind knee and top of right ankle Elevate with 3-4 pillows RLE NWB to right lower extremity with crutches Physical therapy consulted- please elevate and treat Discussed with patient in detail risks, benefits, complications and alte rnatives. Patient understands and is agreeable. All questions/concerns addressed Cardiac clearance obtained. Patient to go to the OR tomorrow at 7:[address] John NÚÑEZ Diet after midnight Hold anticoagulants Patient is aware and agreeable Continue RICE protocol
--- NOTE | 2019-01-25 14:58 | CARD ---
APPROVED REPORT Date of service: 01/24/2019 Protocol: LEXISCAN Test Type: LEXISCAN Test Indications: PRE OP Medical History: CHEST PAIN Target HR: 167 bpm Resting ECG: NSR WITH NS ST T CHANGES Resting Heart Rate: 67 bpm Resting Blood Pressure: 132/80mmHg submaximum (85%): 142 bpm TEST SUMMARY [id number]/80.0. INFUSIONDOSE 100:300.00.01.074/.0. [id number]/78.0. PROCEDURE Pharmacologic stress testing was performed using 0.4mg per 5ml of regadenoson given intravenously over 7-10 seconds. POST EXERCISE Reason for Termination: Protocol Completed Target HR: No Max HR: 74 bpm 64% of Maximum Predicted HR: 167 bpm Exercise duration: 00:30 min:sec, 0 Stage Exercise capacity: 1.0METs Max Blood Pressure: 134/78mmHg Blood Pressure response to exercise: normal resting BP - appropriate response Heart Rate response to exercise: appropriate Chest Pain: No, none Angina index: 0 Arrhythmia: No, none ST Change: No, none Deviation: 0 mm INTERPRETATION Stress EKG Conclusion: NEGATIVE LEXISCAN STRESS TEST NORMAL BP RESPONSE TO LEXISCAN NUCLEAR STUDIES TO BE READ SEPARATELY EXAM: Myocardial Perfusion STRESS/REST Imaging Protocol The imaging protocol used to acquire images was Stress Tc-99m/rest Tc-99m 1 day Rest Spect myocardial perfusion imaging was performed in supine position 45 minutes following the injection of 32.9 mCi of Tc-99 Myoview. Gated Stress Spect was performed 45 minutes after intravenous 12.5 mCi Tc-99 Myoview injection. The images were gated to evaluate regional wall motion and calculate ventricular ejection fraction.Images were reconstructed using backfilter projection method in short horizontal and verticle long axis. Spect slices were generated. RESTING DATA QYW260.71ahHR0.60L/min ESV59.00mlMyocardial Widv938.00g Av. Heart Rate62.00bpm EF56.00% STRESS DATA KBH485.91amVY2.20L/min ESV55.00mlMyocardial Uupd039.00g EF62.00% Regional WT score at stress:0.00 Regional WM score at stress:0.00 Summed WT score at stress:9.00 Av. Heart Rate69.00bpmSummed WM score at stress:1.00 LV Perf. Quant 17 Seg. SSS0.00 17 Seg. SRS0.00 17 Seg. SDS0.00 Stress Defect Extent (% LAD)0.00Rest Defect Extent (% LAD)0.00Rev. Defect Extent (% LAD)0.00 Stress Defect Extent (% LCX)0.00Rest Defect Extent (% LCX)0.00Rev. Defect Extent (% LCX)0.00 Stress Defect Extent (% RCA)0.00Rest Defect Extent (% RCA)0.00Rev. Defect Extent (% RCA)0.00 Stress Defect Extent (% JAMES)0.00Rest Defect Extent (% JAMES)0.00Rev. Defect Extent (% JAMES)0.00 Other Information Quality:Good IMPRESSION Normal Myocardial Perfusion exercise stress study Stress Test Summary: Normal Metabolism/Perfusion There are no defects. Reversible/Irreversible: Normal Lexiscan nuclear stress test and normal EF
--- NOTE | 2019-01-25 20:40 | PN ---
DATE: 01/25/2019 SUBJECTIVE: The patient is seen and examined at bedside. The patient offers no new complaints other than the pain. PHYSICAL EXAMINATION: GENERAL: Middle-aged male, lying in bed, in no acute distress. VITAL SIGNS: Blood pressure 118/74, pulse 65, respirations 20, temperature 97.8 degrees Fahrenheit, O2 sats 96% on room air. HEENT: Pupils equal, round, reacting to light and accommodation. Extraocular muscles intact. No icterus. No pallor. No oral thrush. No pharyngeal congestion. NECK: Supple. No JVD. LUNGS: Bilateral vesicular breath sounds. No wheezing. No rhonchi. CARDIOVASCULAR SYSTEM: S1 and S2 present, regular. ABDOMEN: Soft and nontender. Bowel sounds present. No guarding. No rigidity. No rebound tenderness noted. CENTRAL NERVOUS SYSTEM: Alert, awake, oriented x3. No focal deficits noted. EXTREMITIES: No edema. Right foot with a cast in place. MEDICATIONS: Include Tylenol as needed, amlodipine 10 mg daily, Lovenox 40 mg subcutaneous daily, hydrochlorothiazide 50 mg daily, Toprol-XL 50 mg p.o. b.i.d., Percocet as needed, half-normal saline at 75 mL/hour. LABORATORY DATA: No new labs. Stress test negative. ASSESSMENT AND PLAN: A middle-aged male with past medical history of hypertension, abnormal EKG, status post stress test which was normal, and the patient is cleared for the procedure. The patient is at acceptable risk for the scheduled procedure. Surgery is postponed until Monday. Continue with current medications. Follow up with Podiatry. Bam Hunter MD
[2019-01-26] MEDS: Sodium Chloride 0.45% 1,000 ML IV SCH ×2 (06:05→18:30)
[2019-01-26] MEDS ORDERED: ceFAZolin 1 gm in NS 2 GM/200 ML BAG IVPB ONE (07:51)
[2019-01-26] MEDS ORDERED: Bupivacaine HCl 0.25% PF (10 ml) Inj ONE (09:42)
[2019-01-26] MEDS ORDERED: Bupivacaine 0.25% 20 ML INJ IJ ONE (09:42)
--- NOTE | 2019-01-26 09:54 | CP.PCM.PN ---
Subjective - Date & Time of Evaluation Date of Evaluation: 01/26/19 Time of Evaluation: 09:54 - Subjective Subjective: Progress note dictated #[id number] Objective - Vital Signs/Intake and Output Vital Signs (last 24 hours): Temp Pulse Resp BP Pulse Ox 97.8 F 70 20 149/86 98 01/25/19 23:20 01/25/19 23:20 01/25/19 23:20 01/25/19 23:20 01/25/19 23:20 Intake and Output: 01/26/19 01/26/19 06:59 18:59 Intake Total 400 200 Output Total 600 Balance -200 200 - Medications Medications: Current Medications Acetaminophen (Tylenol 325mg Tab) 650 mg PO Q6 PRN PRN Reason: Pain, Mild (1-3) Amlodipine Besylate (Norvasc) 10 mg PO DAILY [facility] Last Admin: 01/25/19 11:04 Dose: 10 mg Enoxaparin Sodium (Lovenox) 40 mg SC DAILY [facility] Last Admin: 01/25/19 11:05 Dose: 40 mg Hydrochlorothiazide (Hydrodiuril) 50 mg PO DAILY [facility] Last Admin: 01/25/19 11:05 Dose: 50 mg Sodium Chloride (Sodium Chloride 0.45%) 1,000 mls @ 75 mls/hr IV .[id number] [facility] Last Admin: 01/26/19 06:05 Dose: 75 mls/hr Metoprolol Succinate (Toprol Xl) 50 mg PO BID [facility] Last Admin: 01/25/19 17:14 Dose: 50 mg Oxycodone/Acetaminophen (Percocet 5/325 Mg Tab) 1 tab PO Q4H PRN PRN Reason: Pain, moderate (4-7) Stop: 01/28/19 12:42 Last Admin: 01/25/19 12:52 Dose: 1 tab Oxycodone/Acetaminophen (Percocet 5/325 Mg Tab) 2 tab PO Q4H PRN PRN Reason: Pain, severe (8-10) Stop: 01/28/19 12:43 - Labs Labs: 01/23/19 11:55 01/23/19 11:55 PT 11.4 SECONDS (9.7-12.2) 01/23/19 11:55 INR 1.0 01/23/19 11:55 APTT 33 SECONDS (21-34) 01/23/19 11:55
--- NOTE | 2019-01-26 10:15 | PCM.SURG1 ---
Surgeon's Initial Post Op Note - Surgeon's Notes Surgeon: Dr. Lopez Bar Hostess: Dr. Miranda pgy-3, Dr. Molina pgy-2, Dr. Bernal PGy-2 Type of Anesthesia: General LMA, Local Anesthesia Administered By: Dr. Omalley Pre-Operative Diagnosis: Right ankle displaced fracture Operative Findings: see dictation. 11/08 tubular plate synthes. 3.0 arthrex suture jimmei. 2-0,3-0,4-0 vicryl, 4-0 nylon Post-Operative Diagnosis: same Operation Performed: right ankle ORIF Specimen/Specimens Removed: none Estimated Blood Loss: EBL {In ML}: 5 Blood Products Given: N/A Drains Used: No Drains Post-Op Condition: Good Date of Surgery/Procedure: 01/26/19 Time of Surgery/Procedure: 10:14
[2019-01-26] MEDS ORDERED: Bupivacaine HCl 0.5% PF (10 ml) Inj ONE (10:23)
[2019-01-26] MEDS: HYDROmorphone 0.5 mg/0.5 ml ISec IVP PRN ×2 (10:55→11:10)
--- NOTE | 2019-01-26 11:02 | PCM.ANESB2 ---
Popliteal Nerve Block - Popliteal Nerve Block Date of Procedure: 01/26/19 Procedure Performed: Popliteal Nerve Block Right - Procedure Popliteal Nerve Block: This procedure was explained to the patient that it is for post-operative pain management. Consent was obtained after a thorough discussion with the patient regarding the benefits and possible complications of local anesthetic block of the sciatic nerve at the popliteal level. After surgery patient was brought to the PACU and standard monitors are applied. Time-out was held with the circulating nurse to confirm the correct surgery and the appropriate block. After applying oxygen by nasal cannula, patient awake alert, patient's operative leg was gently raised and supported and the groove in between the biceps femoris and vastus lateralis muscles was carefully palpated. The skin approximately 8cm above the popliteal crease was then marked. The ultrasound transducer was then applied to the posterior thigh approximately 8cm above the popliteal crease in the transverse plane and the sciatic nerve before its division was visualized lateral to the popliteal artery and in between the bicep femoris and semimembranosus/semitendinosus muscles. After identification, the lateral portion of the thigh was prepped with chloraprep and Lidocaine 1% was injected subcutaneously for topical anesthesia. At this point, a # 21 gauge Stimuplex insulated 4 inch needle was inserted into pre-marked area and advanced in a perpendicular direction. The needle was inserted above the ultrasound transducer in-plane towards the sciatic nerve in a [id number] direction. Needle advancement was performed carefully under direct ultrasound visualization. Nerve stimulator was used and dorsiflexion of the RIGHT foot was elicited at a current of 0.5 MA. After repeated negative aspiration, __5_cc of __0.5 % bupivicaine was injected and this was flowed with 10_ cc of _0.5_% bupivicaine _. Under ultrasound guidance the local anesthetics were observed surrounding sciatic nerve . The needle was removed intact and sterile dressing was applied. The patient tolerated the popliteal nerve block well with stable vital signs, no complaints throughout, no paresthesias or pain, patient awake and able to give feedback throughout.
[2019-01-26] MEDS: Metoprolol Succinate 50 mg XL Tab PO SCH ×2 (12:32→18:29)
--- NOTE | 2019-01-26 12:38 | RAD ---
Date of service: 01/26/2019 PROCEDURE: Intraoperative fluoroscopy HISTORY: ORIF RT ANKLE FX COMPARISON: Not available TECHNIQUE: Intraoperative fluoroscopy was provided for ORIF of right ankle fracture. Total time of fluoroscopy was 88.9 sec. Cumulative dose was 5.76 mGy. FINDINGS: Multiple fluoroscopic spot films are submitted demonstrating progressive steps during ORIF of distal fibular fracture. IMPRESSION: Fluoroscopy provided.
--- NOTE | 2019-01-26 15:03 | PN ---
DATE: 01/26/2019 SUBJECTIVE: The patient is seen and examined in PACU. The patient underwent surgery this morning. Denies any other new complaints. PHYSICAL EXAMINATION: GENERAL: A middle-aged male, lying in bed, in no acute distress. VITAL SIGNS: Blood pressure 128/78, pulse 64, respirations 20, temperature 97.5 degrees Fahrenheit, and O2 saturations 95% on 3 L nasal cannula. HEENT: Pupils equal, round, and reacting to light and accommodation. Extraocular muscles are intact. No icterus, no pallor, no oral thrush, and no pharyngeal congestion. NECK: Supple, no JVD. LUNGS: Bilateral vesicular breath sounds. No wheezing, no rhonchi. CARDIOVASCULAR SYSTEM: S1 and S2 present, regular. ABDOMEN: Soft, nontender, bowel sounds present. No guarding, no rigidity, and no rebound tenderness noted. CENTRAL NERVOUS SYSTEM: Alert, awake, and oriented x 3. No focal deficits noted. EXTREMITIES: Right foot with dressing in place. MEDICATIONS: Include Tylenol as needed, Norvasc 10 mg daily, Lovenox 40 mg subcu daily, hydrochlorothiazide 50 mg daily, Dilaudid as needed, Toprol XL 50 mg b.i.d., Zofran as needed, Percocet as needed, and half normal saline at 75 mL an hour. ASSESSMENT AND PLAN: A middle-aged male with history of hypertension, admitted for right ankle fracture, underwent a stress test for cardiac clearance. As his EKG was abnormal, stress test was normal, underwent surgical repair of his ankle fracture this morning and underwent nerve block. Discussed with Podiatry resident. If the patient is feeling better and cleared by Podiatry, we will discharge the patient to be followed up with his primary as outpatient. Bam Hunter MD
--- NOTE | 2019-01-26 16:40 | RAD ---
Date of service: 01/26/2019 PROCEDURE: Right Ankle Radiographs. HISTORY: s/p surgery COMPARISON: None available. TECHNIQUE: 3 views obtained. FINDINGS: BONES: Status post ORIF oblique distal fibular fracture. Plate and screw device seen across the fracture. A button suture is noted. JOINTS: Normal. No osteoarthritis. Ankle mortise maintained. Talar dome intact SOFT TISSUES: Normal. OTHER FINDINGS: None. IMPRESSION: ORIF distal fibular fracture.
[2019-01-26] MEDS: Oxycodone/Acetaminophen 5/325 mg Tab PO PRN (19:51)
--- NOTE | 2019-01-26 23:26 | CP.PCM.PN ---
Subjective - Date & Time of Evaluation Date of Evaluation: 01/25/19 Time of Evaluation: 19:25 - Subjective Subjective: Patient seen and evaluated S/P surgery Stable Physical Exam - Constitutional Appears: Well, Non-toxic, No Acute Distress - Extremities Exam Extremities exam: Negative for: calf tenderness Additional comments: RLE VASC: DP and PT 2/4, pulses present, CFT < 3 seconds x 5 digits, temperature gradient warm to cool, nonpitting edema mild-moderate noted to the entire right ankle, no varciosities, no spider veins ORTHO: severe pain with palpation to the lateral malleolus, moderate deltoid ligaments and ankle joint, pain with ankle ROM, patient able to dorsiflexion, plantarflexion, invert and nafisa with some guarding noted, no pallor NEURO: gross and protective sensation intact DERM: no ecchymosis noted, no open lesions, skin texture WNL, no erythema noted - Neurological Exam Neurological exam: Alert, Oriented x3 - Psychiatric Exam Psychiatric exam: Normal Affect, Normal Mood Assessment & Plan - Assessment and Plan (Free Text) Assessment: 53 Male wth hx of HTN Normal nuclear stress test ECHO: Normal EF, No valvular issues S/P surgery No cardiac events noted Objective - Vital Signs/Intake and Output Vital Signs (last 24 hours): Temp Pulse Resp BP Pulse Ox 98.0 F 82 20 162/95 H 98 01/26/19 15:05 01/26/19 21:33 01/26/19 15:05 01/26/19 21:33 01/26/19 15:05 Intake and Output: 01/26/19 01/27/19 18:59 06:59 Intake Total 2400 Output Total 650 Balance 1750 - Medications Medications: Current Medications Acetaminophen (Tylenol 325mg Tab) 650 mg PO Q6 PRN PRN Reason: Pain, Mild (1-3) Amlodipine Besylate (Norvasc) 10 mg PO DAILY [facility] Last Admin: 01/26/19 12:32 Dose: 10 mg Enoxaparin Sodium (Lovenox) 40 mg SC DAILY [facility] Last Admin: 01/25/19 11:05 Dose: 40 mg Hydrochlorothiazide (Hydrodiuril) 50 mg PO DAILY [facility] Last Admin: 01/26/19 12:35 Dose: 50 mg Hydromorphone HCl (Dilaudid) 0.5 mg IVP Q15M PRN PRN Reason: Pain, severe (8-10) Last Admin: 01/26/19 11:10 Dose: 0.5 mg Metoprolol Succinate (Toprol Xl) 50 mg PO BID [place] Last Admin: 01/26/19 18:29 Dose: 50 mg Oxycodone/Acetaminophen (Percocet 5/325 Mg Tab) 1 tab PO Q4H PRN PRN Reason: Pain, moderate (4-7) Stop: 01/28/19 12:42 Last Admin: 01/26/19 19:51 Dose: 1 tab Oxycodone/Acetaminophen (Percocet 5/325 Mg Tab) 2 tab PO Q4H PRN PRN Reason: Pain, severe (8-10) Stop: 01/28/19 12:43 - Labs Labs: 01/23/19 11:55 01/23/19 11:55 PT 11.4 SECONDS (9.7-12.2) 01/23/19 11:55 INR 1.0 01/23/19 11:55 APTT 33 SECONDS (21-34) 01/23/19 11:55
--- NOTE | 2019-01-26 23:27 | CP.PCM.PN ---
Subjective - Date & Time of Evaluation Date of Evaluation: 01/26/19 Time of Evaluation: 14:15 - Subjective Subjective: Patient seen and evaluated S/P surgery Stable Physical Exam - Constitutional Appears: Well, Non-toxic, No Acute Distress - Extremities Exam Extremities exam: Negative for: calf tenderness Additional comments: RLE VASC: DP and PT 2/4, pulses present, CFT < 3 seconds x 5 digits, temperature gradient warm to cool, nonpitting edema mild-moderate noted to the entire right ankle, no varciosities, no spider veins ORTHO: severe pain with palpation to the lateral malleolus, moderate deltoid ligaments and ankle joint, pain with ankle ROM, patient able to dorsiflexion, plantarflexion, invert and nafisa with some guarding noted, no pallor NEURO: gross and protective sensation intact DERM: no ecchymosis noted, no open lesions, skin texture WNL, no erythema noted - Neurological Exam Neurological exam: Alert, Oriented x3 - Psychiatric Exam Psychiatric exam: Normal Affect, Normal Mood Assessment & Plan - Assessment and Plan (Free Text) Assessment: 53 Male wth hx of HTN Normal nuclear stress test ECHO: Normal EF, No valvular issues S/P surgery No cardiac events noted Objective - Vital Signs/Intake and Output Vital Signs (last 24 hours): Temp Pulse Resp BP Pulse Ox 98.0 F 82 20 162/95 H 98 01/26/19 15:05 01/26/19 21:33 01/26/19 15:05 01/26/19 21:33 01/26/19 15:05 Intake and Output: 01/26/19 01/27/19 18:59 06:59 Intake Total 2400 Output Total 650 Balance 1750 - Medications Medications: Current Medications Acetaminophen (Tylenol 325mg Tab) 650 mg PO Q6 PRN PRN Reason: Pain, Mild (1-3) Amlodipine Besylate (Norvasc) 10 mg PO DAILY [facility] Last Admin: 01/26/19 12:32 Dose: 10 mg Enoxaparin Sodium (Lovenox) 40 mg SC DAILY [facility] Last Admin: 01/25/19 11:05 Dose: 40 mg Hydrochlorothiazide (Hydrodiuril) 50 mg PO DAILY [facility] Last Admin: 01/26/19 12:35 Dose: 50 mg Hydromorphone HCl (Dilaudid) 0.5 mg IVP Q15M PRN PRN Reason: Pain, severe (8-10) Last Admin: 01/26/19 11:10 Dose: 0.5 mg Metoprolol Succinate (Toprol Xl) 50 mg PO BID [place] Last Admin: 01/26/19 18:29 Dose: 50 mg Oxycodone/Acetaminophen (Percocet 5/325 Mg Tab) 1 tab PO Q4H PRN PRN Reason: Pain, moderate (4-7) Stop: 01/28/19 12:42 Last Admin: 01/26/19 19:51 Dose: 1 tab Oxycodone/Acetaminophen (Percocet 5/325 Mg Tab) 2 tab PO Q4H PRN PRN Reason: Pain, severe (8-10) Stop: 01/28/19 12:43 - Labs Labs: 01/23/19 11:55 01/23/19 11:55 PT 11.4 SECONDS (9.7-12.2) 01/23/19 11:55 INR 1.0 01/23/19 11:55 APTT 33 SECONDS (21-34) 01/23/19 11:55
[2019-01-27] MEDS: Metoprolol Succinate 50 mg XL Tab PO SCH ×2 (09:24→17:53)
[2019-01-27] MEDS: Oxycodone/Acetaminophen 5/325 mg Tab PO PRN ×2 (09:25→17:53)
[2019-01-27] MEDS: Enoxaparin 40 mg Syringe SC SCH ×2 (11:38→11:39)
--- NOTE | 2019-01-27 13:43 | CP.PCM.PN ---
Subjective - Date & Time of Evaluation Date of Evaluation: 01/27/19 Time of Evaluation: 13:43 - Subjective Subjective: Discharge summary dictated #[id number] Objective - Vital Signs/Intake and Output Vital Signs (last 24 hours): Temp Pulse Resp BP Pulse Ox 98 F 75 18 155/91 H 97 01/27/19 11:47 01/27/19 11:47 01/27/19 11:47 01/27/19 11:47 01/27/19 11:47 - Medications Medications: Current Medications Acetaminophen (Tylenol 325mg Tab) 650 mg PO Q6 PRN PRN Reason: Pain, Mild (1-3) Amlodipine Besylate (Norvasc) 10 mg PO DAILY [facility] Last Admin: 01/27/19 09:25 Dose: 10 mg Enoxaparin Sodium (Lovenox) 40 mg SC DAILY [facility] Last Admin: 01/27/19 11:39 Dose: 40 mg Hydrochlorothiazide (Hydrodiuril) 50 mg PO DAILY [facility] Last Admin: 01/27/19 09:25 Dose: 50 mg Hydromorphone HCl (Dilaudid) 0.5 mg IVP Q15M PRN PRN Reason: Pain, severe (8-10) Last Admin: 01/26/19 11:10 Dose: 0.5 mg Metoprolol Succinate (Toprol Xl) 50 mg PO BID [facility] Last Admin: 01/27/19 09:24 Dose: 50 mg Oxycodone/Acetaminophen (Percocet 5/325 Mg Tab) 1 tab PO Q4H PRN PRN Reason: Pain, moderate (4-7) Stop: 01/28/19 12:42 Last Admin: 01/27/19 09:25 Dose: 1 tab Oxycodone/Acetaminophen (Percocet 5/325 Mg Tab) 2 tab PO Q4H PRN PRN Reason: Pain, severe (8-10) Stop: 01/28/19 12:43 - Labs Labs: 01/23/19 11:55 01/23/19 11:55 PT 11.4 SECONDS (9.7-12.2) 01/23/19 11:55 INR 1.0 01/23/19 11:55 APTT 33 SECONDS (21-34) 01/23/19 11:55
[2019-01-27 14:54] LABS: BASO # 0.1 K/uL (0.0-0.2); BASO % 0.6 % (0.0-2.0); EOS % 0.5 % (0.0-4.0); HEMOGLOBIN 16.7 g/dL (12.0-18.0); LYMPH # 1.7 K/uL (1.0-4.3); LYMPH % 20.7 % (20.0-40.0); MEAN CELL VOLUME 87.1 fL (80.0-94.0); MEAN CORPUSCULAR HEMOGLOBIN 29.1 pg (27.0-31.0); MEAN CORPUSCULAR HGB CONC 33.4 g/dL (33.0-37.0); MEAN PLATELET VOLUME 8.4 fL (7.2-11.7); MONO # 1.1 K/uL (0.0-0.8); MONO % 12.7 % (0.0-10.0); NEUT # 5.4 K/uL (1.8-7.0); NEUT % 65.5 % (50.0-75.0); NRBC % 0.1 % (0.0-2.0); RBC 5.76 Mil/uL (4.40-5.90); RED CELL DISTRIBUTION WIDTH 13.9 % (11.5-14.5); WHITE BLOOD COUNT 8.3 K/uL (4.8-10.8)
[2019-01-27 15:15] LABS: ALB/GLOB RATIO 1.2 (1.0-2.1); ALBUMIN 4.5 g/dL (3.5-5.0); CALCIUM 9.6 mg/dl (8.6-10.4)
--- NOTE | 2019-01-27 15:51 | CP.PCM.PN ---
Subjective - Date & Time of Evaluation Date of Evaluation: 01/27/19 Time of Evaluation: 15:49 - Subjective Subjective: Podiatry Progress Note: Dr. Lopez 53 year old male patient seen and evaluated POD#1 R ankle ORIF. Patient states that he is feeling well today, pain is well controlled when he takes 1 percocet. Patient has continued to elevate his R lower extremity as instructed. Denies any weightbearing to the R lower extremity. Denies nausea/vomiting/fever/shortness of breath. Objective - Vital Signs/Intake and Output Vital Signs (last 24 hours): Temp Pulse Resp BP Pulse Ox 98 F 75 18 155/91 H 97 01/27/19 11:47 01/27/19 11:47 01/27/19 11:47 01/27/19 11:47 01/27/19 11:47 - Medications Medications: Current Medications Acetaminophen (Tylenol 325mg Tab) 650 mg PO Q6 PRN PRN Reason: Pain, Mild (1-3) Amlodipine Besylate (Norvasc) 10 mg PO DAILY [facility] Last Admin: 01/27/19 09:25 Dose: 10 mg Enoxaparin Sodium (Lovenox) 40 mg SC DAILY [facility] Last Admin: 01/27/19 11:39 Dose: 40 mg Hydrochlorothiazide (Hydrodiuril) 50 mg PO DAILY [facility] Last Admin: 01/27/19 09:25 Dose: 50 mg Hydromorphone HCl (Dilaudid) 0.5 mg IVP Q15M PRN PRN Reason: Pain, severe (8-10) Last Admin: 01/26/19 11:10 Dose: 0.5 mg Metoprolol Succinate (Toprol Xl) 50 mg PO BID [facility] Last Admin: 01/27/19 09:24 Dose: 50 mg Oxycodone/Acetaminophen (Percocet 5/325 Mg Tab) 1 tab PO Q4H PRN PRN Reason: Pain, moderate (4-7) Stop: 01/28/19 12:42 Last Admin: 01/27/19 09:25 Dose: 1 tab Oxycodone/Acetaminophen (Percocet 5/325 Mg Tab) 2 tab PO Q4H PRN PRN Reason: Pain, severe (8-10) Stop: 01/28/19 12:43 - Labs Labs: 01/27/19 14:48 01/27/19 14:48 PT 11.4 SECONDS (9.7-12.2) 01/23/19 11:55 INR 1.0 01/23/19 11:55 APTT 33 SECONDS (21-34) 01/23/19 11:55 - Constitutional Appears: Non-toxic, No Acute Distress - Head Exam Head Exam: ATRAUMATIC, NORMOCEPHALIC - Extremities Exam Additional comments: Posterior splint clean/dry/intact NVS intact Patient able to wiggle toes CFT < 3 seconds to digits - Neurological Exam Neurological Exam: Alert, Awake, Oriented x3 - Psychiatric Exam Psychiatric exam: Normal Affect, Normal Mood Assessment and Plan - Assessment and Plan (Free Text) Assessment: 53 year old male patient seen and evaluated POD#1 R ankle ORIF. Plan: Patient seen and examined Discussed plan in detail with attending Dr Lopez X-rays reviewed right ankle- displaced right ankle distal fibular fracture, wide medial gutter, ankle joint incongruent, talar tilt noted CT right lower extremity order and reviewed- displaced right fibular fracture Educated on RICE protocol Elevate with 3-4 pillows RLE NWB to right lower extremity with crutches C/w pain management Patient given prescriptions for Keflex and crutches Patient to follow up in [facility] next Monday (February 04) with Dr. Lopez
[2019-01-27 16:13] VITALS: BP 138/78; PULSE 68; RESP 20; TEMP 98.6; O2SAT 96
[2019-01-27] MEDS ORDERED: Pneumococcal 23-Valent Vaccine IM ONE (16:24)
[2019-01-27] MEDS ORDERED: Influenza Vaccine 60 mcg/0.5 mL SYR (4YR UP) IM ONE (16:24)
--- NOTE | 2019-01-27 20:28 | CARD ---
APPROVED REPORT Date of service: 01/24/2019 EKG Measurement Heart [id number] OR [id number] <Conclusion> Normal sinus rhythm Incomplete right bundle branch block T wave abnormality, consider inferior ischemia Abnormal ECG
--- NOTE | 2019-01-28 04:24 | OP ---
PROCEDURE DATE: 01/26/2019 SURGEON: Dr. Lopez. IT ARCHITECT: Nellie Miranda DPM, PGY-3; Dr. Bernal, PGY-2; Dr. Molina, PGY-2. ASSEMBLER FITTER: Dr. Owens. ANESTHESIA: General with local. PREOPERATIVE DIAGNOSIS: Right ankle displaced fracture with deltoid ligament injury. POSTOPERATIVE DIAGNOSIS: Right ankle displaced fracture with deltoid ligament injury. PROCEDURE PERFORMED: Right ankle open reduction with internal fixation. INDICATION: The patient is a 53-year-old male with the above-mentioned diagnosis. The patient sustained an ankle fracture and now seeks surgical intervention. The patient signed the consent after careful explanation of risks, benefits, complications, and alternatives for the surgical procedure. No guarantees were given nor implied. N.p.o. status was confirmed prior to bringing the patient to the operating room. DESCRIPTION OF PROCEDURE: The patient was brought into the operating room and placed on the operating room table in supine position. Time-out was performed for identification of the correct patient and procedure. A well-padded Pneumatic thigh tourniquet was placed in the patient's right thigh in a supramalleolar position. After induction of general anesthesia, the right foot and leg was then prepped and draped in a normal sterile manner. The pneumatic thigh tourniquet was then inflated to 350 mmHg and the procedure began. Attention was directed to the lateral aspect of the right ankle where a fracture was present. At this time, with the use of a #15 blade, an approximately 7 cm in length linear incision was created over the lateral aspect of the fibula of the right extremity. The incision was carried down from proximal to distal down to the level of malleolus. Upon completion of the incision, all neurovascular structure encountered were retracted, ligated, and bovied as necessary. At this time via the use of a cabrera elevator, the periosteal tissue was dissected from the osseous attachment, and they noted a spiral oblique fibular fracture was present setting up the level of the joint and extending proximally. The surgical site was then copiously irrigated with sterile normal saline. At this time via the use of a bone clamp, distal and proximal distraction, the fracture was placed in an anatomical corrected position with noted increase length of the fibula and jainism of the ankle mortise upon performing this procedure. Upon establishment of the correct length of the fibula, the fracture site was then clamped with two clamps. At this time, a Synthes 3.5 mm lag screw was placed across the fracture site in order to allow for interfragmentary screw fixation using standard AO principles and technique. Upon completion of this procedure, the clamp was then removed. It was noted that good fixation had been achieved across the fracture site. At this time, a Synthes 8-hole 1/3 tubular plate was utilized at the lateral aspect of the fibula, which was then fixated with the use of a 3.5 mm locking and nonlocking screws proximal and distal to the fracture site. Six screws were utilized at the site. Upon completion of the fibula reduction and fixation, the surgical site was then copiously irrigated with sterile normal saline. Next, utilizing intraoperative fluoroscopy, a syndesmosis was checked using a Cotton/Hook test, and the syndesmotic ligament was noted to be disrupted. The guidewire from the Arthrex TightRope system was then passed through the lateral aspect of the fibula through one-third tubular plate through the entirety of the fibula and through the medial and lateral cortices of the tibia, exiting the patient's medial aspect of the right ankle. Proper positioning of the guidewire was verified under C-arm fluoroscopy. Next, a cannulated drill bit from the Arthrex TightRope was then placed over the guidewire and the medial and the lateral cortices of the fibula were drilled, and the medial and the lateral cortices of the tibia were drilled. The drill bit and the guidewire were then removed from the surgical field. Next, the needle from the tightrope system was passed through the lateral and medial cortices of the fibular and into the lateral and medial cortices of the tibia exiting out the medial aspect of the patient's right ankle. The needle was then cut and freed from the suture and the medial and lateral suture bonds of the Arthrex TightRope system was then manipulated utilizing the sutures to be pushed against the medial aspect of the tibial cortex and the lateral aspect of the fibula. Proper positioning of the button was verified using intraoperative fluoroscopy. The excess sutures were then cut and removed from the surgical field. The incision site were then copiously irrigated with sterile normal saline. The subcutaneous tissues were reapproximated with 2-0, 3-0, and 4-0 Vicryl and the skin was reapproximated with 4-0 nylon. Next, a 5-cm curvilinear incision was made on the medial aspect of the right ankle, the superior and anterior to the medial malleolus extending distally and inferior using a #15 blade. Incision was carried down to subcutaneous tissues with care being taken to identify and retract all vital neurovascular structures. All bleeders were cauterized and ligated as necessary. Next, a sharp periosteal dissection was carried down to the medial gutter and the medial malleolus was exposed. Hematoma and hypertrophy of the ligament was noted upon visualization of the medial malleolus. The incision site was then copiously irrigated with sterile normal saline. Next, the periosteal tissue was then resected off of the distal aspect of the medial malleolus. The distal aspect of the medial malleolus was then drilled with Arthrex 1.8 mm SutureTak drill bit creating a pilot safety inspector hole and the Arthrex 3.0 SutureTak was then tamped into the bone and into the drill hole. Utilizing the FiberWire attached to the SutureTak, the deltoid ligament was reapproximated with over and over suture technique while the foot was placed in an inverted position to offer maximum tightening. Incision site was copiously irrigated with sterile normal saline. The subcutaneous tissues was then reapproximated with 2-0 and 3-0 Vicryl and the skin was then reapproximated with 4-0 Nylon. Postoperative injection of 10 mL of 0.5% Marcaine plain was given in a local block type fashion to the right ankle. Postoperative dressings included Betadine-soaked Adaptic, 4x4 gauze, Laura, Mitch, and AO posterior splint was placed to the right lower extremity. POSTOPERATIVE CONDITION: The patient tolerated the anesthesia and the procedure well and was escorted to recovery room with vital signs stable and neurovascular status intact to the right lower extremity. The patient will follow up with Dr. Lopez on an outpatient basis. Nellie Miranda DPM Kerri Lopez DPM
--- NOTE | 2019-01-28 07:39 | DS ---
DISCHARGE DIAGNOSES: Right ankle fracture with right ankle open reduction and internal fixation, hypertension, abnormal EKG, status post stress test, normal limits. HISTORY: Mr. Waller is a 53-year-old male with past medical history of hypertension who has been following up with Dr. Reese Hernandez, sustained an injury and found to be having right ankle fracture, and the patient is admitted for further management. Today, the patient is feeling better. Denies any headache or dizziness. Denies any chest pain, shortness of breath, or wheezing. Denies any nausea, vomiting, abdominal pain, diarrhea, or constipation. Denies any other urinary complaints. Denies any leg pains or leg cramps. PHYSICAL EXAMINATION: GENERAL; Middle age male, lying in bed, in no acute distress. VITAL SIGNS: Blood pressure 138/78, pulse 68, respirations 20, temperature 98.6 degrees Fahrenheit, O2 saturations 96% on room air. HEENT: Pupils are equal, round, and reacting to light and accommodation. Extraocular muscles are intact. No icterus. No pallor. No oral thrush. No pharyngeal congestion. NECK: Supple. No JVD. LUNGS: Bilateral vesicular breath sounds. No wheezing. No rhonchi. CARDIOVASCULAR SYSTEM: S1 and S2 present. Regular. ABDOMEN: Soft and nontender. Bowel sounds are present. No guarding. No rigidity. No rebound tenderness noted. CENTRAL NERVOUS SYSTEM: Alert, awake, and oriented x2. No focal deficits noted. EXTREMITIES: No edema. Right foot with dressing in place. LABORATORY DATA: WBC 8.3, hemoglobin 16.7, hematocrit 50.1, platelets 301. Sodium 134, potassium 3.7, chloride 93, bicarb 33, BUN 21, creatinine 1.6, glucose 119, calcium 9.6, phosphorus 4.6, magnesium 2.2. Total bilirubin 1.3. AST 20, ALT 15, alkaline phosphatase 64. HOSPITAL COURSE: The patient was admitted to the hospital for right ankle fracture. The patient was evaluated by Podiatry, scheduled for ORIF. The patient had abnormal EKG with T-inversions in inferior leads. The patient had recent echocardiogram done in August which was within normal limits with normal EF. Cardiology requested for cardiology clearance. The patient underwent stress test which was within normal limits, and the patient was cleared by Cardiology for OR. The patient underwent right ankle ORIF yesterday, and today, the patient is better and cleared by Podiatry. As the patient is otherwise doing dull, the patient is in distress, I advised the patient to follow up with Podiatry and PMD as outpatient and advised to return to ED for any worsening symptoms. CONDITION UPON DISCHARGE: The patient is alert, awake, and oriented x3, and hemodynamically stable at the time of discharge. DISCHARGE INSTRUCTIONS: Follow up with PMD. Follow up with Podiatry. DIET: Heart healthy low sodium diet. ACTIVITY: As per Podiatry. DISCHARGE MEDICATIONS: Advised to continue with his home medications along with pain medication. Bam Hunter MD
== END 2019-01-27 18:18 | disposition home or self-care (01) | DRG 219 ==
LOC: C.ER 09:23 → C.SDS 11:27 → OBSVTOIN 17:50 → C.9E 17:50 → C.6T 18:40
PROVIDERS: ADMIT Internal Medicine; ATTEND Internal Medicine
PROC: 0QSG04Z Reposition Right Tibia with Internal Fixation Device, Open Approach (ICD-10-PCS; principal; 2019-01-26 07:45)
DX: S82.51XA Displaced fracture of medial malleolus of right tibia, initial encounter for closed fracture (principal); X58.XXXA Exposure to other specified factors, initial encounter; I10 Essential (primary) hypertension

== ENCOUNTER 2019-03-18 11:37 | Outpatient (CLI) | payer OTHER | END 2019-03-18 11:38 | disposition home or self-care (01) | LOC: C.RADH 11:37 | DX: S82.891D Other fracture of right lower leg, subsequent encounter for closed fracture with routine healing (principal) ==